=== PATIENT | female | born 1945 | race Caucasian/White ===

== ENCOUNTER 2017-03-27 08:17 | Emergency (ER) | payer OTHER ==
--- NOTE | ~2017-03-27 | CT4 ---
[facility] A Service of [facility] / [facility] RADIOLOGY TEXT RESULTS PATIENT: ADAL GATES LOCATION: [facility] : 41 UNIT #: [id number] AGE: [address]: Willy Driscoll MD SEX: F ORDER DR: [id number] [facility] [address] [facility] [place] [facility]. [place], [place] [address] [id number] MR#: [id number] #: [id number] NAME: ADAL GATES : 1945 SEX: F STUDY DATE/TIME: 03/27/2017 9:34 UNIT: [facility] ROOM: STUDY DESCRIPTION: CT Abd and Pelv Wo Cont Attending Physician: Willy Driscoll M.D. Ordering Physician: Willy Driscoll M.D. Primary Care Physician: Jane Hill A.P.R.N. MEDICAL IMAGING REPORT This report is preliminary unless electronic signature is present EXAM CT abdomen and pelvis without contrast INDICATION Back pain and pain after voiding for the past week. PROCEDURE Unenhanced CT of the abdomen and pelvis. This CT examination was performed with one or more of the following radiation dose reduction techniques: automatic exposure control, adjustment of mA and/or kV according to patient size, and iterative reconstruction. COMPARISON None. FINDINGS ABDOMEN WITHOUT CONTRAST: The included lung bases are clear. The liver, spleen, adrenal glands, pancreas are unremarkable. There is a 3-4 mm stone in the gallbladder. No evidence for active inflammation. No radiodense urinary system calculus or hydronephrosis. Uncomplicated sigmoid diverticula. Moderate colonic stool. Bowel loops are nondilated. Appendix is normal. PELVIS WITHOUT CONTRAST: No radiodense bladder calculus. Previous hysterectomy. No pelvic mass. No aggressive appearing bone lesion. IMPRESSION 1. No acute findings in the abdomen or pelvis. 2. Moderate colonic stool burden. Dictated by... [facility] A Service of [facility] / [facility] RADIOLOGY TEXT RESULTS PATIENT: ADAL GATES LOCATION: [facility] : 41 UNIT #: [id number] AGE: [address]: Willy Driscoll MD SEX: F ORDER DR: Vadim Lawrence M.D. THIS IS AN ELECTRONICALLY VERIFIED REPORT Vadim Lawrence M.D. at 03/29/2017 10:10 PM DARELL/feliberto TD: 03/27/2017 12:38 JOB #: [id number] MEDICAL IMAGING REPORT Page 1 of 1 COPY
[~2017-03-27 08:17] MED LIST: ALKA-SELTZER D1 EACH; ALPRAZOLAM0.25 MG PO; AZITHROMYCIN250 MG PO; COMBIVENT U/D3 ML PO; DELSYM COUGH PO; EFFEXOR75 M2; ESTRACE1 M1; GUAIATUSSIN AC L5 ML; MEDROL4 MG/DOSE- PO; MONODOX100 MG PO; MUCINEX SINUS-1 EAC2; NORVASC10 MG PO; PREDNISONE PO; PREMARIN0.625 MG PO; ROBITUSSIN A-C S5 ML PO; SEROQUEL50 M1 PO; SUDAFED PE COLD1 TA1 PO; SYMBICORT INH; SYNTHROID0.05 MG PO; VENLAFAXINE HCL75 M2 PO; WAL-PROFEN200 M2; Z-PACK PO; ZITHROMAX PO; [UNRECOGNIZED DRUG - OTHER] PO
[2017-03-27 09:33] LABS: URINE SOURCE CLEAN CATCH
[2017-03-27 09:46] LABS: URINE APPEARANCE CLOUDY; URINE BILIRUBIN NEG (NEG); URINE BLOOD 1+ (NEG); URINE COLOR YELLOW; URINE GLUCOSE NEG (NEG); URINE KETONE NEG (NEG); URINE LEUKOCYTE ESTERASE 3+ (NEG); URINE NITRATE NEG (NEG); URINE PH 5.5 (5-8); URINE PROTEIN NEG (NEG); URINE SPECIFIC GRAVITY 1.007 (1.003-1.035); URINE UROBILINOGEN 0.2 MG/DL (NEG)
[2017-03-27 09:50] LABS: CULTURE INDICATED? YES; URINE BACTERIA AUWI 2+ (NEGATIVE); URINE SQUAMOUS EPITHELIAL CELL NONE SEEN /[HPF]; UWBCS1 AUWI INNUM (0-5)
== END 2017-03-27 11:16 | disposition home or self-care (01) ==
LOC: CED 08:17
PROVIDERS: Emergency Medicine
DX: N30.00 Acute cystitis without hematuria (principal); I10 Essential (primary) hypertension; J44.9 Chronic obstructive pulmonary disease, unspecified; K75.9 Inflammatory liver disease, unspecified; Z90.710 Acquired absence of both cervix and uterus
CPT/HCPCS: 36415; 74176; 81003; 87086; 87088; 87186; 99284

== ENCOUNTER 2017-03-30 11:54 | Emergency (ER) | payer OTHER ==
[2017-03-30 14:00] LABS: URINE SOURCE CLEAN CATCH
[2017-03-30 14:06] LABS: URINE APPEARANCE CLEAR; URINE BILIRUBIN NEG (NEG); URINE BLOOD NEG (NEG); URINE COLOR YELLOW; URINE GLUCOSE NEG (NEG); URINE KETONE NEG (NEG); URINE LEUKOCYTE ESTERASE NEG (NEG); URINE NITRATE NEG (NEG); URINE PROTEIN NEG (NEG); URINE SPECIFIC GRAVITY 1.007 (1.003-1.035); URINE UROBILINOGEN 0.2 MG/DL (NEG)
[2017-03-30 14:17] LABS: CULTURE INDICATED? NO
== END 2017-03-30 15:15 | disposition home or self-care (01) ==
LOC: CED 11:54
PROVIDERS: Nurse Practitioner
DX: L29.9 Pruritus, unspecified (principal); T36.8X5A Adverse effect of other systemic antibiotics, initial encounter; I10 Essential (primary) hypertension; F41.9 Anxiety disorder, unspecified; F32.9 Major depressive disorder, single episode, unspecified; Z86.19 Personal history of other infectious and parasitic diseases; F17.200 Nicotine dependence, unspecified, uncomplicated; Z88.2 Allergy status to sulfonamides; Z88.8 Allergy status to other drugs, medicaments and biological substances
CPT/HCPCS: 81003; 99283